=== PATIENT | male | born 1985 | race Caucasian/White ===

== ENCOUNTER 2019-12-05 10:59 | Outpatient (CLI) | payer OTHER, SELFPAY ==
[2019-12-05 11:39] LABS: Potassium 4.2 mmol/L (3.4-5.0)
[2019-12-05 11:45] LABS: Alanine Aminotransferase 20 U/L (4-50); Albumin Level 4.5 g/dL (3.5-5.1); Alkaline Phosphatase 81 U/L (38-126); Aspartate Amino Transferase 24 U/L (17-59); Bilirubin,Total 0.4 mg/dL (0.2-1.3); Blood Urea Nitrogen 15 mg/dL (9-20); Calcium 9.1 mg/dL (8.4-10.2); Carbon Dioxide 27 mmol/L (22-30); Chloride 100 mmol/L (98-107); Cholesterol 174 mg/dL (0-200); Estimated Glomerular Filt Rate > 60; Glucose 86 mg/dL (75-110); HDL Direct 42 mg/dL; Sodium 139 mmol/L (137-145); Triglycerides 160 mg/dL (<150); Uric Acid 4.9 mg/dL (3.5-8.5)
[2019-12-05 11:51] LABS: LDL Cholesterol Direct 96 mg/dL
== END 2019-12-05 11:00 | disposition home or self-care (01) ==
PROVIDERS: PCP Internal Medicine; Visit Provider Internal Medicine
DX: I10 Essential (primary) hypertension (principal)
CPT/HCPCS: 36415; 80053; 80061; 84550

== ENCOUNTER 2020-02-07 08:18 | Outpatient (CLI) | payer OTHER, SELFPAY ==
[2020-02-07 09:01] LABS: Potassium 4.1 mmol/L (3.4-5.0)
[2020-02-07 09:03] LABS: Alanine Aminotransferase 16 U/L (4-50); Albumin Level 4.3 g/dL (3.5-5.1); Alkaline Phosphatase 77 U/L (38-126); Aspartate Amino Transferase 21 U/L (17-59); Bilirubin,Total 0.3 mg/dL (0.2-1.3); Blood Urea Nitrogen 15 mg/dL (9-20); Calcium 9.3 mg/dL (8.4-10.2); Carbon Dioxide 29 mmol/L (22-30); Chloride 102 mmol/L (98-107); Estimated Glomerular Filt Rate > 60; Glucose 89 mg/dL (75-110); Sodium 139 mmol/L (137-145); Uric Acid 5.1 mg/dL (3.5-8.5)
== END 2020-02-07 08:19 | disposition home or self-care (01) ==
PROVIDERS: PCP Internal Medicine; Visit Provider Podiatrist Foot & Ankle Surgery
DX: M10.9 Gout, unspecified (principal)
CPT/HCPCS: 36415; 80053; 84550

== ENCOUNTER 2020-04-22 12:41 | Outpatient (CLI) | payer OTHER, SELFPAY ==
[2020-04-22 13:17] LABS: Alanine Aminotransferase 19 U/L (4-50); Albumin Level 4.3 g/dL (3.5-5.1); Alkaline Phosphatase 84 U/L (38-126); Aspartate Amino Transferase 25 U/L (17-59); Bilirubin,Total 0.5 mg/dL (0.2-1.3); Blood Urea Nitrogen 12 mg/dL (9-20); Calcium 9.2 mg/dL (8.4-10.2); Carbon Dioxide 28 mmol/L (22-30); Chloride 101 mmol/L (98-107); Estimated Glomerular Filt Rate > 60; Glucose 99 mg/dL (75-110); Potassium 3.8 mmol/L (3.4-5.0); Sodium 137 mmol/L (137-145)
== END 2020-04-22 12:42 | disposition home or self-care (01) ==
PROVIDERS: PCP Internal Medicine; Visit Provider Podiatrist Foot & Ankle Surgery
DX: M10.9 Gout, unspecified (principal)
CPT/HCPCS: 36415; 80053; 84550

== ENCOUNTER 2020-09-02 15:17 | Outpatient (CLI) | payer OTHER, SELFPAY ==
[2020-09-02 17:03] LABS: Alanine Aminotransferase 17 U/L (4-50); Albumin Level 4.5 g/dL (3.5-5.1); Alkaline Phosphatase 68 U/L (38-126); Anion Gap 8 mmol/L (8-16); Aspartate Amino Transferase 22 U/L (17-59); Bilirubin,Total 0.6 mg/dL (0.2-1.3); Blood Urea Nitrogen 14 mg/dL (9-20); Calcium 9.6 mg/dL (8.4-10.2); Carbon Dioxide 28 mmol/L (22-30); Chloride 101 mmol/L (98-107); Cholesterol 199 mg/dL (0-200); Estimated Glomerular Filt Rate > 60; Glucose 101 mg/dL (75-110); HDL Direct 46 mg/dL; Sodium 137 mmol/L (137-145); Triglycerides 165 mg/dL (<150)
[2020-09-02 17:14] LABS: LDL Cholesterol Direct 117 mg/dL
== END 2020-09-02 15:18 | disposition home or self-care (01) ==
LOC: ANHLAB 15:19
PROVIDERS: PCP Internal Medicine; Visit Provider Internal Medicine
DX: I10 Essential (primary) hypertension (principal)
CPT/HCPCS: 36415; 80053; 80061

== ENCOUNTER 2020-11-04 10:39 | Outpatient (CLI) | payer OTHER, SELFPAY ==
--- NOTE | ~2020-11-04 | US_ITS ---
EXAMINATION: US scrotum doppler EXAM DATE: 11/04/2020 11:15 INDICATION: Orchitis, epididymitis. TECHNIQUE: Multiple grayscale and Doppler images of the testicles and scrotum were obtained bilateral ly. There is no prior study for comparison. FINDINGS: Right testicle measures 4.8 x 3.4 x 2.5 cm and is morphologically normal. Low resistance Doppler kailey w confirmed. The epididymis is unremarkable. There is no hydrocele or varicocele. Left testicle measures 4.9 x 3.2 x 2.8 cm and is morphologically normal. Low resistance Doppler flow confirmed. The epididymis is unremarkable. There is no hydrocele or varicocele. IMPRESSION: 1. Unremarkable testicular/scrotal ultrasound exam. Reviewed, dictated and finalized at location B. INE OPERATOR TRANSPLANTER
== END 2020-11-04 10:40 | disposition home or self-care (01) ==
PROVIDERS: PCP Internal Medicine; Visit Provider Urology
DX: N45.3 Epididymo-orchitis (principal)
CPT/HCPCS: 76870; 93976

== ENCOUNTER 2021-02-17 12:53 | Outpatient (CLI) | payer OTHER, SELFPAY ==
[2021-02-17 13:42] LABS: Alanine Aminotransferase 16 U/L (4-50); Albumin Level 4.7 g/dL (3.5-5.1); Alkaline Phosphatase 86 U/L (38-126); Anion Gap 7 mmol/L (8-16); Aspartate Amino Transferase 25 U/L (17-59); Bilirubin,Total 0.6 mg/dL (0.2-1.3); Blood Urea Nitrogen 13 mg/dL (9-20); Calcium 9.6 mg/dL (8.4-10.2); Carbon Dioxide 26 mmol/L (22-30); Chloride 103 mmol/L (98-107); Estimated Glomerular Filt Rate > 60; Glucose 105 mg/dL (75-110); Potassium 4.2 mmol/L (3.4-5.0); Sodium 136 mmol/L (137-145)
== END 2021-02-17 12:54 | disposition home or self-care (01) ==
LOC: ANHLAB 12:56
PROVIDERS: PCP Internal Medicine; Visit Provider Podiatrist Foot & Ankle Surgery
DX: M10.9 Gout, unspecified (principal)
CPT/HCPCS: 36415; 80053; 84550

== ENCOUNTER 2021-08-20 13:58 | Emergency (ER) | payer OTHER, SELFPAY ==
--- NOTE | ~2021-08-20 | US_ITS ---
EXAMINATION: US right upper quadrant DATE: 08/20/2021 15:34 INDICATION: Epigastric pain TECHNIQUE: Multiple grayscale and Doppler ultrasound images of the abdomen were obtained. COMPARISON: None FINDINGS: The pancreatic head and body are normal in appearance. The pancreatic tail is not visualized. Liver has normal echogenicity and contour, with a smooth surface. No liver lesion identified. No intrahepat ic biliary duct dilation suspected. Portal venous flow was seen in the hepatopetal, normal direction and has normal Doppler waveform. The gallbladder is normal in appearance. There is no cholelithiasis . The common bile duct measures 2 mm, which is normal. Sonographic Garcia sign was reported as negati ve by the auto apprentice mechanic. Visualized portion of the right kidney demonstrates normal echogenicity and co ntour with no hydronephrosis. IMPRESSION: 1. Normal right upper quadrant ultrasound. Reviewed, dictated and finalized at location A. RITY SOLUTIONS ENGINEER
--- NOTE | ~2021-08-20 | XR_ITS ---
XR chest 2V DATE: 08/20/2021 14:31 INDICATION: Sharp left-sided chest pain TECHNIQUE: PA and lateral views COMPARISON: 04/26/2019 PA chest FINDINGS: Normal heart size. No hilar or mediastinal enlargement. There is mild elevation of the right leaf of the diaphragm anteriorly, likely due to mild eventration . No pulmonary infiltrate or consolidation, pleural effusion or pulmonary vascular congestion or pneumo thorax is detected. Included skeletal structures are unremarkable. IMPRESSION: No active cardiopulmonary disease Reviewed, dictated and finalized at location A. GENETIC TECHNICIAN
--- NOTE | 2021-08-20 13:59 | ECG_ITS ---
Measurements Intervals [place] Rate: 66 P: 43 WI: 162 QRS: 2 QRSD: 106 T: 12 QT: 348 QTc: 365 Interpretive Statements SINUS RHYTHM NORMAL ECG Electronically Signed On 08-20-2021 14:18:23 HANDLE TURNER by Jacob Hairston D.O.
[2021-08-20 14:08] VITALS: BP 158/99; PULSE 69; RESP 16; TEMP 36.7; O2SAT 100
[2021-08-20 14:11] LABS: Basophils Percent Auto 0.4 % (0.2-1.2); Eosinophils Absolute Auto 0.2 K/mm3 (0-0.3); Eosinophils Percent Auto 2.8 % (0-4.4); Hematocrit 43.5 % (42.0-52.0); Hemoglobin 14.5 g/dL (14.0-18.0); Immature Granulocyte Absolute 0.02 K/mm3 (0.00-0.031); Immature Granulocyte Percent A 0.3 % (0-0.5); Lymphocytes Absolute Auto 2.23 K/mm3 (0.9-3.2); Lymphocytes Percent Auto 29.5 % (18.3-44.2); Mean Corpuscular HGB Conc 33.3 g/dl (32-36); Mean Corpuscular Hemoglobin 27.2 pg (26-34); Mean Corpuscular Volume 81.6 fl (80-100); Mean Platelet Volume 9.7 fl (7.4-10.4); Monocytes Absolute Auto 0.7 K/mm3 (0.1-0.6); Monocytes Percent Auto 9.1 % (2.6-8.5); Neutrophils Absolute Auto 4.4 K/mm3 (1.3-6.7); Neutrophils Percent Auto 57.9 % (45.5-73.1); Platelet Count Result 270 k/mm3 (150-375); Red Blood Count 5.33 M/mm3 (4.6-6.20); Red Cell Distribution Width 13.3 % (11.5-14.5); White Blood Count 7.6 K/mm3 (4.5-10.0)
[2021-08-20 14:21] LABS: Prothrombin Time 12.9 Seconds (11.1-14.7)
[2021-08-20 14:22] LABS: Partial Thromboplastin Time 27.2 SECONDS (22.3-36.8)
[2021-08-20 14:23] LABS: Alanine Aminotransferase 19 U/L (4-50); Albumin Level 4.5 g/dL (3.5-5.1); Alkaline Phosphatase 74 U/L (38-126); Anion Gap 9 mmol/L (8-16); Aspartate Amino Transferase 24 U/L (17-59); Bilirubin,Total 0.5 mg/dL (0.2-1.3); Blood Urea Nitrogen 12 mg/dL (9-20); Calcium 9.5 mg/dL (8.4-10.2); Carbon Dioxide 27 mmol/L (22-30); Chloride 104 mmol/L (98-107); Estimated CRCL calculation 120 ml/min; Estimated Glomerular Filt Rate > 60; Glucose 104 mg/dL (65-110); Lipase 77 U/L (23-300); Sodium 140 mmol/L (137-145)
[2021-08-20 14:24] VITALS: BP 144/101; PULSE 68; RESP 16; O2SAT 99
[2021-08-20 14:32] VITALS: BP 155/92; PULSE 73; RESP 12; O2SAT 99
[2021-08-20 14:35] LABS: Troponin I < 0.012 ng/mL (0.000-0.034)
[2021-08-20] MEDS: ASPIRIN 81 MG CHEWABLE TABLET 324 MG PO (14:41)
[2021-08-20 15:01] VITALS: BP 164/92; PULSE 79; RESP 13; O2SAT 100
[2021-08-20 15:48] VITALS: BP 141/93; PULSE 75; RESP 20; O2SAT 98
--- NOTE | 2021-08-20 16:32 | ED.CHESTPAIN ---
HPI - Chest Pain General Chief Complaint: Chest Pain Stated Complaint: chest pain Time Seen by Provider: 08/20/21 14:04 History of Present Illness HPI narrative: Patient is a 36-year-old male who presents ER with chest pain. Symptoms began last week. Has had intermittent chest pain in the center of his chest. Last for minutes at a time. No radiation. No runny nose or sore throat or productive cough. No exertional component. Has also been having some numbness in his left arm at times when he wakes up. He does note that he has been sleeping with his son and has not been getting as much rest recently. He has been feeling more worn down. After talking to family/friends he is opted to seek care given his symptoms. Reports she is had similar symptoms in the past and his gallbladder was evaluated without diagnosis of gallstones. He reports he has a grandmother with history of coronary disease at a young age however his mother and father have no coronary disease. Patient also reports she is recently started working out and has been using a rowing machine. Related Data Home Medications Medication Instructions Recorded Confirmed allopurinol 08/20/21 lisinopril 08/20/21 Allergies Allergy/AdvReac Type Severity Reaction Status Date / Time No Known Allergies Allergy Verified 08/20/21 14:33 Review of Systems Review of Systems: All systems reviewed & are unremarkable except as noted in HPI and below Constitutional: Constitutional: Denies chills, Reports fatigue, Denies fever(s) and Denies weakness ENT: Denies nasal congestion and Denies sore throat Cardiovascular: Cardiovascular: Reports chest pain, Denies rapid heart rate and Denies radiating jaw, neck or arm pain Respiratory: Respiratory: Denies cough, Denies dyspnea and Denies wheezing Gastrointestinal: Gastrointestinal: Denies abdominal pain, Denies diarrhea and Denies vomiting Musculoskeletal: Musculoskeletal: Denies back pain and Denies muscle cramps PMFSH Past Medical History Medical History (Updated 08/20/21 @ 16:47 by Matthias Hussein MD) Hypertension Surgical History Surgical History (Updated 08/20/21 @ 16:47 by Matthias Hussein MD) H/O hernia repair Hx of appendectomy Social History Social History (Updated 08/20/21 @ 16:47 by Matthias Hussein MD) Smoking status: Never smoker Exam Narrative: GENERAL: Well-appearing, well-nourished, and in no acute distress. HEAD: Normocephalic, atraumatic. ENT: Mucous membranes moist. CHEST: Clear to auscultation. No respiratory distress. HEART: Regular rate and rhythm. Normal peripheral pulses. ABDOMEN: Soft, nontender, nondistended. EXTREMITIES: Normal range of motion. No edema. SKIN: Warm, dry, no rash. NEURO: Alert and oriented x3. PSYCH: Normal mood and affect. Course Course Emergency Course: Informed of results. Feels well. Discharge home. Vital Signs Vital signs: Vital Signs Temperature 98.1 F 08/20/21 14:08 Pulse Rate 69 08/20/21 14:08 Respiratory Rate 16 08/20/21 14:08 Blood Pressure 158/99 H 08/20/21 14:08 Pulse Oximetry 100 08/20/21 14:08 Temperature 98.1 F 08/20/21 14:08 Pulse Rate 75 08/20/21 15:48 Respiratory Rate 20 08/20/21 15:48 Blood Pressure 141/93 H 08/20/21 15:48 Pulse Oximetry 98 08/20/21 15:48 MDM - Chest Pain Lab Data Result diagrams: 08/20/21 14:05 08/20/21 14:05 Labs: Lab Results 08/20/21 08/20/21 08/20/21 Range/Units 14:05 14:05 14:05 WBC 7.6 (4.5-10.0) K/mm3 RBC 5.33 (4.6-6.20) M/mm3 Hgb 14.5 (14.0-18.0) g/dL Hct 43.5 (42.0-52.0) % MCV 81.6 (80-100) fl MCH 27.2 (26-34) pg MCHC 33.3 (32-36) g/dl RDW 13.3 (11.5-14.5) % Plt Count 270 (150-375) k/mm3 MPV 9.7 (7.4-10.4) fl Immature Gran % (Auto) 0.3 (0-0.5) % Neut % (Auto) 57.9 (45.5-73.1) % Lymph % (Auto) 29.5 (18.3-44.2) % [place] % (Auto) 9.1 H (2.6-8.5) %
== END 2021-08-20 16:57 | disposition home or self-care (01) ==
PROVIDERS: Emergency Provider Emergency Medicine; PCP Internal Medicine
DX: R07.89 Other chest pain (principal); I10 Essential (primary) hypertension
CPT/HCPCS: 36415; 71046; 76705; 80053; 83690; 84484; 85025; 85610; 85730; 93005; 99284; A9270

== ENCOUNTER 2022-01-27 13:14 | Outpatient (CLI) | payer OTHER, SELFPAY ==
--- NOTE | ~2022-01-27 | XR_ITS ---
EXAMINATION:XR_CERV2-3V_CR DATE: 01/27/2022 13:38 INDICATION: Neck pain TECHNIQUE: AP, lateral, lateral swimmers and odontoid views of the cervical spine are provided. COMPARISON: None FINDINGS: Alignment is normal. The odontoid is intact. No fracture is identified. Vertebral body heig hts and disk spaces are normal. Prevertebral soft tissues are normal. IMPRESSION: 1. No acute osseous abnormality. Reviewed, dictated and finalized at location F.
[2022-01-27 14:48] LABS: Alanine Aminotransferase 20 U/L (4-50); Albumin Level 4.7 g/dL (3.5-5.1); Alkaline Phosphatase 85 U/L (38-126); Anion Gap 9 mmol/L (8-16); Aspartate Amino Transferase 27 U/L (17-59); Bilirubin,Total 0.4 mg/dL (0.2-1.3); Blood Urea Nitrogen 14 mg/dL (9-20); Calcium 9.2 mg/dL (8.4-10.2); Carbon Dioxide 23 mmol/L (22-30); Chloride 105 mmol/L (98-107); Cholesterol 206 mg/dL (0-200); Estimated Glomerular Filt Rate > 60; Glucose 105 mg/dL (65-110); HDL Direct 42 mg/dL; Potassium 3.9 mmol/L (3.4-5.0); Sodium 137 mmol/L (137-145); Triglycerides 229 mg/dL (<150); Uric Acid 5.4 mg/dL (3.5-8.5)
[2022-01-27 14:59] LABS: LDL Cholesterol Direct 108 mg/dL
== END 2022-01-27 13:15 | disposition home or self-care (01) ==
PROVIDERS: PCP Internal Medicine; Visit Provider Internal Medicine
DX: I10 Essential (primary) hypertension (principal); M54.2 Cervicalgia
CPT/HCPCS: 36415; 72040; 80053; 80061; 84550

== ENCOUNTER 2022-07-24 09:39 | Outpatient (CLI) | payer OTHER, SELFPAY ==
[2022-07-24 10:23] LABS: Alanine Aminotransferase 20 U/L (6-50); Albumin Level 4.6 g/dL (3.5-5.1); Alkaline Phosphatase 83 U/L (38-126); Anion Gap 15 mmol/L (8-16); Aspartate Amino Transferase 23 U/L (17-59); Bilirubin,Total 0.5 mg/dL (0.2-1.3); Blood Urea Nitrogen 11 mg/dL (9-20); Calcium 9.2 mg/dL (8.4-10.2); Carbon Dioxide 24 mmol/L (22-30); Chloride 102 mmol/L (98-107); Cholesterol 159 mg/dL (0-200); Estimated Glomerular Filt Rate > 60; Glucose 90 mg/dL (65-110); HDL Direct 39 mg/dL; Potassium 4.1 mmol/L (3.4-5.0); Sodium 141 mmol/L (137-145); Triglycerides 145 mg/dL (<150); Uric Acid 4.7 mg/dL (3.5-8.5)
[2022-07-24 10:34] LABS: LDL Cholesterol Direct 87 mg/dL
== END 2022-07-24 09:40 | disposition home or self-care (01) ==
PROVIDERS: PCP Internal Medicine; Visit Provider Internal Medicine
DX: M10.9 Gout, unspecified (principal); I10 Essential (primary) hypertension
CPT/HCPCS: 36415; 80053; 80061; 84550

== ENCOUNTER 2022-08-04 12:17 | Outpatient (CLI) | payer OTHER, SELFPAY ==
--- NOTE | ~2022-08-04 | XR_ITS ---
XR shoulder RT min 2V DATE: 08/04/2022 12:52 INDICATION: Right shoulder pain. No known injury. TECHNIQUE: 5 views COMPARISON: None FINDINGS: No fracture or dislocation, periosteal reaction or bone destruction or abnormal soft tissue calcification. IMPRESSION: Negative Reviewed, dictated and finalized at location A. IMPRESSION: Negative
== END 2022-08-04 12:18 | disposition home or self-care (01) ==
PROVIDERS: PCP Internal Medicine; Visit Provider Orthopaedic Surgery
DX: M25.511 Pain in right shoulder (principal)
CPT/HCPCS: 73030

== ENCOUNTER 2023-01-25 00:38 | Emergency (ER) | payer OTHER, SELFPAY ==
[2023-01-25] VITALS (8 sets, daily range): BP systolic 129–143; BP diastolic 88–100; PULSE 60–79; RESP 11–16; TEMP 36.3; O2SAT 97–100
[2023-01-25 01:11] LABS: Basophils Percent Auto 0.2 % (0.2-1.2); Eosinophils Absolute Auto 0.2 K/mm3 (0-0.3); Eosinophils Percent Auto 2.7 % (0-4.4); Hematocrit 48.2 % (42.0-52.0); Hemoglobin 15.9 g/dL (14.0-18.0); Immature Granulocyte Absolute 0.01 K/mm3 (0.00-0.031); Immature Granulocyte Percent A 0.2 % (0-0.5); Lymphocytes Absolute Auto 1.65 K/mm3 (0.9-3.2); Lymphocytes Percent Auto 25.8 % (18.3-44.2); Mean Corpuscular Hemoglobin 27.3 pg (26-34); Mean Corpuscular Volume 82.8 fl (80-100); Mean Platelet Volume 9.8 fl (7.4-10.4); Monocytes Percent Auto 14.9 % (2.6-8.5); Neutrophils Absolute Auto 3.6 K/mm3 (1.3-6.7); Neutrophils Percent Auto 56.2 % (45.5-73.1); Platelet Count Result 267 k/mm3 (150-375); Red Blood Count 5.82 M/mm3 (4.6-6.20); Red Cell Distribution Width 13.1 % (11.5-14.5); White Blood Count 6.4 K/mm3 (4.5-10.0)
[2023-01-25 01:28] LABS: Alanine Aminotransferase 21 U/L (6-50); Albumin Level 4.6 g/dL (3.5-5.1); Alkaline Phosphatase 70 U/L (38-126); Anion Gap 8 mmol/L (8-16); Aspartate Amino Transferase 26 U/L (17-59); Bilirubin,Total 0.9 mg/dL (0.2-1.3); Blood Urea Nitrogen 16 mg/dL (9-20); Calcium 9.4 mg/dL (8.4-10.2); Carbon Dioxide 29 mmol/L (22-30); Chloride 99 mmol/L (98-107); Estimated CRCL calculation 111 ml/min; Estimated Glomerular Filt Rate > 60; Glucose 91 mg/dL (65-110); Lipase 114 U/L (23-300); Potassium 4.1 mmol/L (3.4-5.0); Sodium 136 mmol/L (137-145)
[2023-01-25] MEDS: FAMOTIDINE 20 MG/2 ML VIAL IV PUSH (01:42)
[2023-01-25] MEDS: HYDROmorphone HCL INJ (*CRX) 1 MG/ML SYR 0.5 MG IV PUSH (01:42)
[2023-01-25] MEDS: SODIUM CHLORIDE 0.9% IV 2,000 ML 999 ML IV CONT (01:42)
[2023-01-25] MEDS: ONDANSETRON INJ 4 MG/2 ML VIAL IV PUSH (01:42)
--- NOTE | 2023-01-25 02:17 | ED.GENADULT ---
HPI - General Adult General Chief complaint: Abdominal Pain Stated complaint: abdominal pain Time Seen by Provider: 01/25/23 00:59 History of Present Illness HPI narrative: This is a 37-year-old male presenting ED with chief complaint of nausea vomiting abdominal pain. Patient has been on would go be for the last month. He increased his dose from 20 mg to 50 mg. Afterwards he started experience sharp generalized abdominal pain, it is nonradiating, 8 out 10 intensity and constant. He has tried Zofran which has helped his symptoms and there are no exacerbating factors. It is associated with decreased oral intake and nausea. No vomiting, diarrhea fever or chills. Patient is concerned that he has pancreatitis. Related Data Home Medications Medication Instructions Recorded Confirmed allopurinol 100 mg tablet 08/20/21 lisinopril 5 mg tablet 08/20/21 Allergies Allergy/AdvReac Type Severity Reaction Status Date / Time No Known Allergies Allergy Verified 01/25/23 00:38 PMFSH Past Medical History Medical History Hypertension Surgical History Surgical History H/O hernia repair Hx of appendectomy Social History Social History Smoking status: Never smoker Exam Narrative: APPEARANCE: No apparent distress. Head: atraumatic. EYES: EOMI, NOSE: Atraumatic NECK: Trachea midline RESPIRATORY: No increased rate of breathing CTAB CARDIOVASCULAR: RRR, ABDOMINAL: Abdomen is soft, nontender with no guarding or rebound MUSCULOSKELETAl: No obvious deformities NEURO: Alert. Moving 4/4 extremities SKIN:: Warm, dry. Normal color PSYCHIATRIC: Normal affect Course Vital Signs Vital signs: Vital Signs Temperature 97.3 F L 01/25/23 00:40 Pulse Rate 79 01/25/23 00:40 Respiratory Rate 14 01/25/23 00:40 Blood Pressure 143/98 H 01/25/23 00:40 Pulse Oximetry 99 01/25/23 00:40 Oxygen Delivery Room Air 01/25/23 00:40 Temperature 97.3 F L 01/25/23 00:40 Pulse Rate 76 01/25/23 01:43 Respiratory Rate 16 01/25/23 01:43 Blood Pressure 130/100 H 01/25/23 01:43 Pulse Oximetry 97 01/25/23 01:43 Oxygen Delivery Room Air 01/25/23 00:40 Medical Decision Making [facility] Narrative Medical decision making narrative: -Presentation: 37-year-old male presenting ED with chief complaint of abdominal pain with nausea and vomiting after increasing his Wegovy dose. 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 Dx tests considered but not ordered: -Procedures: -Interventions: 2 L normal saline, Zofran, Dilaudid, Pepcid -Shared decision making / Disposition: patient's laboratory studies are normal. Abdominal exam is benign. Vital signs are stable. Patient will be discharged with symptomatic treatment. Symptoms are likely due to increased wegovy dosing. -RX Vital Signs Vital Signs: Vital Signs Temperature 97.3 F L 01/25/23 00:40 Pulse Rate 79 01/25/23 00:40 Respiratory Rate 14 01/25/23 00:40 Blood Pressure 143/98 H 01/25/23 00:40 Pulse Oximetry 99 01/25/23 00:40 Oxygen Delivery Room Air 01/25/23 00:40 Temperature 97.3 F L 01/25/23 00:40 Pulse Rate 76 01/25/23 01:43 Respiratory Rate 16 01/25/23 01:43 Blood Pressure 130/100 H 01/25/23 01:43 Pulse Oximetry 97 01/25/23 01:43 Oxygen Delivery Room Air 01/25/23 00:40 Lab Data 01/25/23 01:05
== END 2023-01-25 03:25 | disposition home or self-care (01) ==
PROVIDERS: Emergency Provider Emergency Medicine; PCP Internal Medicine
DX: T88.7XXA Unspecified adverse effect of drug or medicament, initial encounter (principal)
CPT/HCPCS: 36415; 80053; 83690; 85025; 96361; 96374; 96375; 99284; J1170; J2405; J7030

== ENCOUNTER 2023-02-08 14:23 | Outpatient (CLI) | payer OTHER, SELFPAY ==
--- NOTE | ~2023-02-08 | XR_ITS ---
EXAM: XR elbow LT 2V DATE: 02/08/2023 14:35 HISTORY: M25.522 - Pain in left elbow, GENERALIZED PAIN, NO INJURY . COMPARISON: None available. FINDINGS: Normal mineralization. No fracture or dislocation. No lytic or blastic lesion. Mild degene rative changes at the left elbow joint. Olecranon enthesopathy. No erosion or periosteal change. Soft tissues within normal limits. 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 Reviewed, dictated and finalized at location K. IMPRESSION: Olecranon enthesopathy and mild degenerative change at the left elb ow joint, otherwise normal left elbow radiograph findings.
== END 2023-02-08 14:24 | disposition home or self-care (01) ==
PROVIDERS: PCP Internal Medicine; Visit Provider Orthopaedic Surgery
DX: M25.522 Pain in left elbow (principal)
CPT/HCPCS: 73070

== ENCOUNTER 2023-07-23 09:49 | Outpatient (CLI) | payer OTHER, SELFPAY ==
[2023-07-23 10:26] LABS: Basophils Percent Auto 0.3 % (0.2-1.2); Eosinophils Absolute Auto 0.5 K/mm3 (0-0.3); Eosinophils Percent Auto 6.2 % (0-4.4); Hematocrit 45.6 % (42.0-52.0); Hemoglobin 14.9 g/dL (14.0-18.0); Immature Granulocyte Absolute 0.01 K/mm3 (0.00-0.031); Immature Granulocyte Percent A 0.1 % (0-0.5); Lymphocytes Absolute Auto 2.19 K/mm3 (0.9-3.2); Lymphocytes Percent Auto 28.9 % (18.3-44.2); Mean Corpuscular HGB Conc 32.7 g/dl (32-36); Mean Corpuscular Hemoglobin 27.5 pg (26-34); Mean Corpuscular Volume 84.1 fl (80-100); Mean Platelet Volume 9.8 fl (7.4-10.4); Monocytes Absolute Auto 0.6 K/mm3 (0.1-0.6); Monocytes Percent Auto 7.6 % (2.6-8.5); Neutrophils Absolute Auto 4.3 K/mm3 (1.3-6.7); Neutrophils Percent Auto 56.9 % (45.5-73.1); Platelet Count Result 260 k/mm3 (150-375); Red Blood Count 5.42 M/mm3 (4.6-6.20); Red Cell Distribution Width 12.8 % (11.5-14.5); White Blood Count 7.6 K/mm3 (4.5-10.0)
[2023-07-23 10:35] LABS: Alanine Aminotransferase 15 U/L (6-50); Albumin Level 4.7 g/dL (3.5-5.1); Alkaline Phosphatase 72 U/L (38-126); Anion Gap 7 mmol/L (8-16); Aspartate Amino Transferase 21 U/L (17-59); Bilirubin,Total 0.6 mg/dL (0.2-1.3); Blood Urea Nitrogen 14 mg/dL (9-20); Calcium 9.5 mg/dL (8.4-10.2); Carbon Dioxide 29 mmol/L (22-30); Chloride 103 mmol/L (98-107); Cholesterol 148 mg/dL (0-200); Estimated Glomerular Filt Rate > 60; Glucose 84 mg/dL (65-110); HDL Direct 41 mg/dL; Potassium 4.1 mmol/L (3.4-5.0); Sodium 139 mmol/L (137-145); Triglycerides 104 mg/dL (<150)
[2023-07-23 10:46] LABS: LDL Cholesterol Direct 77 mg/dL
[2023-07-28 22:04] LABS: CRP, High Sensitivity 2.4 mg/L (***)
== END 2023-07-23 09:50 | disposition home or self-care (01) ==
LOC: ANHLAB 09:51
PROVIDERS: PCP Internal Medicine; Visit Provider Internal Medicine
DX: R07.9 Chest pain, unspecified (principal)
CPT/HCPCS: 36415; 80053; 80061; 85025; 86141

== ENCOUNTER 2023-08-09 09:04 | Outpatient (CLI) | payer OTHER, SELFPAY ==
--- NOTE | 2023-08-09 | EST_ITS ---
Patient Info Name: Kevin Berman Age: 38 years : 1985 Gender: Male Exam Date: 08/09/2023 9:30 AM Exam Location: Echo Lab Patient Status: Outpatient Admit Date: 08/09/2023 Staff Ordering Physician: Terrance, Kobe GARBER Attending Provider: Terrance, Kobe GARBER Exercise Technologist: Mary Johnson RDCS Nurse: Elza Riddle APN Exercise Physician: Nik Coe MD Exam Type: CA stress test treadmill Study Info Indications R07.9 - Chest pain, unspecified A treadmill exercise stress test was performed. Summary 1. No significant ST/T wave changes with exercise meeting strict criteria for reversible myocardial ischemia. 2. No arrhythmias were observed during the examination. 3. Exercise capacity very good at >10 METS. 4. No chest discomfort with stress test. 5. Hypertensive blood pressure response to exercise, albeit hypertensive at baseline. 6. Maximal treadmill ECG stress test achieving 96% of age predicted maximum heart rate and 12.1 METS at peak exercise. Protocol: Wil[place] Stress ECG Details Stage: REST Duration (min): 1 min : 43 sec Speed (mph): 0.0 Grade (%): 0 HR (bpm): 70 SBP (mmHg): 134 DBP (mmHg): 90 METS: --- Stage: REST Duration (min): 14 min : 2 sec Speed (mph): 0.0 Grade (%): 0 HR (bpm): 70 SBP (mmHg): 134 DBP (mmHg): 90 METS: --- Stage: STAGE 1 Duration (min): 1 min : 0 sec Speed (mph): 1.7 Grade (%): 10 HR (bpm): 99 SBP (mmHg): 134 DBP (mmHg): 90 METS: --- Stage: STAGE 1 Duration (min): 2 min : 0 sec Speed (mph): 1.7 Grade (%): 10 HR (bpm): 103 SBP (mmHg): 134 DBP (mmHg): 90 METS: --- Stage: STAGE 1 Duration (min): 3 min : 0 sec Speed (mph): 1.7 Grade (%): 10 HR (bpm): 101 SBP (mmHg): 159 DBP (mmHg): 90 METS: --- Stage: STAGE 2 Duration (min): 1 min : 0 sec Speed (mph): 2.5 Grade (%): 12 HR (bpm): 115 SBP (mmHg): 159 DBP (mmHg): 90 METS: --- Stage: STAGE 2 Duration (min): 2 min : 0 sec Speed (mph): 2.5 Grade (%): 12 HR (bpm): 127 SBP (mmHg): 159 DBP (mmHg): 89 METS: --- Stage: STAGE 2 Duration (min): 3 min : 0 sec Speed (mph): 2.5 Grade (%): 12 HR (bpm): 130 SBP (mmHg): 159 DBP (mmHg): 89 METS: --- Stage: STAGE 3 Duration (min): 1 min : 0 sec Speed (mph): 3.4 Grade (%): 14 HR (bpm): 143 SBP (mmHg): 169 DBP (mmHg): 91 METS: --- Stage: STAGE 3 Duration (min): 2 min : 0 sec Speed (mph): 3.4 Grade (%): 14 HR (bpm): 151 SBP (mmHg): 169 DBP (mmHg): 91 METS: --- Stage: STAGE 3 Duration (min): 3 min : 0 sec Speed (mph): 3.4 Grade (%): 14 HR (bpm): 156 SBP (mmHg): 212 DBP (mmHg): 85 METS: --- Stage: STAGE 4 Duration (min): 1 min : 0 sec Speed (mph): 4.2 Grade (%): 16 HR (bpm): 172 SBP (mmHg): 209 DBP (mmHg): 112 METS: --- Stage: STAGE 4 Duration (min): 1 min : 0 sec Speed (mph): 4.2 Grade (%): 16 HR (bpm): 172 SBP
== END 2023-08-09 09:05 | disposition home or self-care (01) ==
PROVIDERS: PCP Internal Medicine; Visit Provider Internal Medicine
DX: R07.9 Chest pain, unspecified (principal)
CPT/HCPCS: 93017

== ENCOUNTER 2023-10-18 07:51 | Outpatient (CLI) | payer OTHER, SELFPAY ==
[2023-10-18 08:23] LABS: Uric Acid 6.1 mg/dL (3.5-8.5)
== END 2023-10-18 07:52 | disposition home or self-care (01) ==
LOC: ANHLAB 07:54
PROVIDERS: PCP Internal Medicine; Visit Provider Podiatrist Foot & Ankle Surgery
DX: M10.9 Gout, unspecified (principal)
CPT/HCPCS: 36415; 84550

== ENCOUNTER 2024-01-17 12:19 | Outpatient (CLI) | payer OTHER, SELFPAY ==
[2024-01-17 13:02] LABS: Alanine Aminotransferase 19 U/L (6-50); Albumin Level 4.6 g/dL (3.5-5.1); Alkaline Phosphatase 71 U/L (38-126); Anion Gap 7 mmol/L (4-12); Aspartate Amino Transferase 22 U/L (17-59); Bilirubin,Total 0.6 mg/dL (0.2-1.3); Blood Urea Nitrogen 13 mg/dL (9-20); Calcium 9.3 mg/dL (8.4-10.2); Carbon Dioxide 26 mmol/L (22-30); Chloride 105 mmol/L (98-107); Estimated Glomerular Filt Rate > 60; Glucose 86 mg/dL (65-110); Potassium 4.4 mmol/L (3.4-5.0); Sodium 138 mmol/L (137-145); Uric Acid 4.7 mg/dL (3.5-8.5)
== END 2024-01-17 12:20 | disposition home or self-care (01) ==
LOC: ANHLAB 12:21
PROVIDERS: PCP Internal Medicine; Visit Provider Podiatrist Foot & Ankle Surgery
DX: M10.079 Idiopathic gout, unspecified ankle and foot (principal)
CPT/HCPCS: 36415; 80053; 84550

== ENCOUNTER 2024-05-09 15:25 | Outpatient (CLI) | payer OTHER, SELFPAY ==
--- NOTE | ~2024-05-09 | XR_ITS ---
EXAM: XR knee LT min 4V DATE: 05/09/2024 15:45 HISTORY: M25.562 - Pain in left knee, medial pain . COMPARISON: None available. FINDINGS: Normal mineralization. No fracture or dislocation. No lytic or blastic lesion. Mild medial joint space narrowing. Mild patellofemoral and lateral compartment osteophytosis. Quadriceps entheso olga. Trace knee joint effusion. No erosion or periosteal change. Soft tissues within normal limits. IMPRESSION: Mild tricompartmental osteoarthritis of the left knee. Reviewed, dictated and finalized at location K.
== END 2024-05-09 15:26 | disposition home or self-care (01) ==
LOC: ANHIMG 15:25
PROVIDERS: PCP Internal Medicine; Visit Provider Orthopaedic Surgery
DX: M17.12 Unilateral primary osteoarthritis, left knee (principal)
CPT/HCPCS: 73564

== ENCOUNTER 2024-08-21 15:45 | Outpatient (CLI) | payer OTHER, SELFPAY ==
[2024-08-21 16:32] LABS: Basophils Percent Auto 0.6 % (0.2-1.2); Eosinophils Absolute Auto 0.1 K/mm3 (0-0.3); Hematocrit 43.2 % (42.0-52.0); Hemoglobin 14.5 g/dL (14.0-18.0); Immature Granulocyte Absolute 0.03 K/mm3 (0.00-0.031); Immature Granulocyte Percent A 0.4 % (0-0.5); Lymphocytes Absolute Auto 1.92 K/mm3 (0.9-3.2); Lymphocytes Percent Auto 27.4 % (18.3-44.2); Mean Corpuscular HGB Conc 33.6 g/dl (32-36); Mean Corpuscular Hemoglobin 27.6 pg (26-34); Mean Corpuscular Volume 82.3 fl (80-100); Mean Platelet Volume 9.9 fl (7.4-10.4); Monocytes Absolute Auto 0.7 K/mm3 (0.1-0.6); Monocytes Percent Auto 10.4 % (2.6-8.5); Neutrophils Absolute Auto 4.1 K/mm3 (1.3-6.7); Neutrophils Percent Auto 59.2 % (45.5-73.1); Platelet Count Result 277 k/mm3 (150-375); Red Blood Count 5.25 M/mm3 (4.6-6.20); Red Cell Distribution Width 12.8 % (11.5-14.5)
[2024-08-21 16:54] LABS: Alanine Aminotransferase 16 U/L (6-50); Albumin Level 4.4 g/dL (3.5-5.1); Alkaline Phosphatase 70 U/L (38-126); Anion Gap 8 mmol/L (4-12); Aspartate Amino Transferase 23 U/L (17-59); Bilirubin,Total 0.4 mg/dL (0.2-1.3); Blood Urea Nitrogen 13 mg/dL (9-20); CRP < 0.5 mg/dL (<1.0); Calcium 9.3 mg/dL (8.4-10.2); Carbon Dioxide 28 mmol/L (22-30); Chloride 102 mmol/L (98-107); Estimated Glomerular Filt Rate > 60; Glucose 87 mg/dL (65-110); Potassium 3.7 mmol/L (3.4-5.0); Sodium 138 mmol/L (137-145)
[2024-08-21 17:13] LABS: Erythrocyte Sedimentation Rate 12 mm/hr (0-20)
== END 2024-08-21 15:46 | disposition home or self-care (01) ==
LOC: ANHLAB 15:48
PROVIDERS: PCP Internal Medicine; Visit Provider Internal Medicine
DX: I10 Essential (primary) hypertension (principal); M10.9 Gout, unspecified
CPT/HCPCS: 36415; 80053; 85025; 85652; 86140

== ENCOUNTER 2024-08-22 14:23 | Outpatient (CLI) | payer OTHER, SELFPAY ==
--- NOTE | ~2024-08-22 | MR_ITS ---
EXAMINATION: MRA brain wo con DATE: 08/22/2024 15:21 INDICATION: Headache. TECHNIQUE: Magnetic resonance angiography (MRA) of the brain was performed without intravenous contra st with T1-weighted SPGR by the 3D [id number] technique. Maximum intensity projection 3D-reconstr uctions were obtained. COMPARISON: None. FINDINGS: The vertebral arteries dominant. There is no significant stenosis of basilar artery or the posterior cerebral arteries. There is no significant stenosis of the intracranial internal carotid arteries or anterior or middle cerebral arteries. The posterior communicating arteries are normal. Anterior commu nicating artery is normal. There is no aneurysm. IMPRESSION: 1. Normal MRA. Reviewed, dictated and finalized at location A. M CLEAN MACHINE OPERATOR IMPRESSION: 1. Normal MRA.
--- NOTE | ~2024-08-22 | MR_ITS ---
EXAMINATION: MR brain/brain stem wo/w con DATE: 08/22/2024 15:19 INDICATION: Headache. TECHNIQUE: Magnetic resonance imaging (MRI) of the brain and brainstem was performed without and with 18 mL MultiHance intravenous contrast. COMPARISON: None. FINDINGS: There are a few punctate foci of increased T2-weighted signal intensity in the cerebral whi te matter, which is normal for the patient's age. There is no intracranial hemorrhage, acute infarcti on, or abnormal intracranial mass lesion. The ventricles are normal in size. The orbits are normal. T here is mild mucosal thickening in the paranasal sinuses. The mastoid air cells are normal. IMPRESSION: 1. Normal brain. Reviewed, dictated and finalized at location A. MENTAL IRONWORKER IMPRESSION: 1. Normal brain.
== END 2024-08-22 14:24 | disposition home or self-care (01) ==
LOC: MICIMG 14:24
PROVIDERS: PCP Internal Medicine; Visit Provider Internal Medicine
DX: R51.9 Headache, unspecified (principal)
CPT/HCPCS: 70544; 70553; A9577

== ENCOUNTER 2024-11-30 07:18 | Outpatient (CLI) | payer OTHER, SELFPAY ==
[2024-11-30 08:49] LABS: Alanine Aminotransferase 17 U/L (6-50); Albumin Level 4.2 g/dL (3.5-5.1); Alkaline Phosphatase 81 U/L (38-126); Anion Gap 10 mmol/L (4-12); Aspartate Amino Transferase 23 U/L (17-59); Bilirubin,Total 0.8 mg/dL (0.2-1.3); Blood Urea Nitrogen 14 mg/dL (9-20); Calcium 9.5 mg/dL (8.4-10.2); Carbon Dioxide 26 mmol/L (22-30); Chloride 103 mmol/L (98-107); Estimated Glomerular Filt Rate > 60; Glucose 93 mg/dL (65-110); Potassium 4.4 mmol/L (3.4-5.0); Sodium 139 mmol/L (137-145); Uric Acid 5.1 mg/dL (3.5-8.5)
== END 2024-11-30 07:19 | disposition home or self-care (01) ==
PROVIDERS: PCP Internal Medicine; Visit Provider Podiatrist Foot & Ankle Surgery
DX: M10.9 Gout, unspecified (principal)
CPT/HCPCS: 36415; 80053; 84550

== ENCOUNTER 2025-08-16 07:45 | Outpatient (CLI) | payer OTHER, SELFPAY ==
--- OUTSIDE RECORDS SUMMARY | 2025-08-16 07:48 | XMS_ITS | Data Portability ---
Author Organization [place] [facility], Main Office Address [address] [place] [address] Assessment Encounter Date Assessment Date Assessment LastModified by Organization Details LastModified Time 07/22/2023 07/22/2023 EKG shows a normal sinus rhythm we will get an exercise stress test coronary calcium score HS CRP CBC CMP lipid. Protonix 40 mg daily for GERD see me back in 6 weeks gout continue current therapy Hypertension controlled Not available 07/22/2023 21:13:23 09/02/2023 09/02/2023 Follow-up 6 months continue current therapy [email or web address] Not available 09/03/2023 20:59:24 Plan of Treatment Reminders Order Date Submit Date Provider Last Modified By Organization Details Last Modified Time Details Appointments None recorded. Lab CRP, high sensitivit y, serum or plasma 2022 023 [facility] (Lab), [address] [place] [address], [phone], 10:19:33 CBC w/ auto diff 2022 023 [facility] (Lab), [address] [place] [address], [phone], 13:09:47 CMP, serum or plasma 2022 023 [facility] (Lab), [address] [place] [address], [phone], 13:09:22 lipid panel, serum 2022 023 [facility] (Lab), [address], [place], [address], 3 13:09:47 Referral None recorded. Procedures None recorded. Surgeries None recorded. Imaging exercise stress test - no auth required 2022 023 [facility] (Cardiology & Emg), [address], [place], [address], 3 14:52:56 CT, coronary calcium score 2022 023 [email or web address] [facility], [address], [place], [address], 4 12:25:25 Medication Orders Protonix 40 mg tablet,del ayed release 2022 023 [facility][id number], [address] , [place], [place], [id number], 3 16:42:41 Patient TargetsNo targets recorded. Patient InstructionsNo instructions recorded. Reason for Referral None Reported. Results Created Date Observation Date Name Description Value Unit Range Abnormal Flag Note LastModifiedBy Organization Detail LastModifiedTime 08/20/20 21 08/20/2021 XR, chest , 2 view No observ ation record ed. [id number] [place] [address] (Imaging) [address] [place] [address], [phone], 12/02/2022 15:42:17 08/20/20 21 08/20/2021 US, abdom en, limit ed No observ ation record ed. [id number] [place] [address] (Imaging) [address] [place] [address], [address], 12/02/2022 15:42:17 01/28/20 22 01/27/2022 XR, cervi gavino spine , 2 or 3 view No observ ation record ed. [id number] [place] [address] [address], [place], [address], 12/02/2022 15:42:17 08/04/20 22 08/04/2022 XR, shoul mike No observ ation record ed. [id number], [place], [address], 12/02/2022 15:42:17 02/09/20 23 02/08/2023 XR, elbow No observ ation record ed. [email or web address] [address], [place], [address], 07/23/2023 09:22:12 07/22/20 23 07/22/2023 elect emery otiedwin am No observ ation record ed. BARCODE Not Available 2022 16:30:20 08/09/20 23 08/09/2023 exerc ise stres s test No observ ation record ed. [email or web address] [address] [facility], [place], [address], 09/22/2023 15:34:10 09/13/20 23 08/09/2023 exerc ise stres s test No observ ation record ed. [email or web address] [address], [place], [address], 10/09/2023 10:57:20 08/23/20 24 08/22/2024 MAMMO , scree jonnathan, digit al, bilat eral No observ ation record ed. [email or web address] [address], [place], [address], 11/03/2024 10:39:07 Result Notes None recorded. Problems Name Problem SNOMED Code Status Onset Date Resolution Date Notes Provider Name and Address Organization Details Recorded Time Blood pressure above reference range 43585766 Active Not Available [facility] 3 01:56:53 Shoulder joint pain 577022089 Active Not Available [facility] 3 01:56:53 Chest pain 62279287 Active Not Available [facility] 3 01:56:53 Right upper quadrant pain 755664056 Active Not Available [facility] 3 01:56:53 Hypertensi ve disorder 09791351 Active Not Available [facility] 3 01:56:53 Pharyngiti s 128004839 Active Not Available [facility] 3 01:56:53 Acquired right hallux rigidus 5759095066876 00 Active Not Available [facility] 3 01:56:53 Foot pain 62043760 Active Not Available [facility] 3 01:56:53 Fatigue 21650926 Active Not Available [facility] 3 01:56:54 Gout 61424240 Active 2019 Not Available [facility] 3 01:56:54 Neck pain 25028558 Active 2021 Not Available [facility] 3 01:56:53 Gastroesop hageal reflux disease 317866938 Active 2022 THA Fu, [place] [facility] 3 16:37:03 Problem Notes None recorded. Procedures Surgical History Date Name Laterality Status Provider Name and Address Organization Details Recorded Time 04/29/20 14 laparoscopic appendectomy completed Not Available [facility] 12/02/2022 15:40:12 06/15/20 13 Insertion drug dlvr implant completed Not Available [facility] 12/02/2022 15:40:12 06/15/20 13 Lawanda arthrs srg decompression completed Not Available [facility] 12/02/2022 15:40:12 06/15/20 13 Lawanda arthrs srg lmtd dbrdmt completed Not Available [facility] 12/02/2022 15:40:12 Hernia Repair completed Not Available [facility] 12/02/2022 15:40:12 appendectomy completed Not Available [facility] 12/02/2022 15:40:12 Imaging Results None recorded. Procedure Notes None recorded. Medical Equipment None Reported. Allergies No known drug allergies Medications Name Sig Start Date Stop Date Status Note LastModified by Organization Details LastModified Time amoxicillin 500 mg capsule 01/29 completed Not Available Not Available Not Available prednisone 10 mg tablet 09/05 completed Not Available Not Available Not Available Protonix 40 mg tablet,yuko yed release Take 1 tablet(s) every day by oral route. active Not Available Not Available No t Available azithromyci n 250 mg tablet TK 2 TS PO ON DAY 1, THEN TK 1 T PO D FOR 4 DAYS 07/22 completed Not Available Not Available Not Available ibuprofen 800 mg tablet TAKE 1 TABLET BY MOUTH THREE TIMES DAILY FOR 7 DAYS NEEDED FOR PAIN 07/22 completed Not Available Not Available Not Available famotidine 40 mg tablet TK 1 T PO BID FOR 7 DAYS 09/05 completed Not Available Not Available Not Available prednisone 20 mg tablet Take 2 tablets every day by oral route for 5 days. 09/05 completed Not Available Not Available Not Available allopurinol 100 mg tablet TAKE 1 TABLET BY MOUTH THREE TIMES DAILY active Not Available Not Available No t Available ciprofloxac in 500 mg tablet TK 1 T PO BID TAT 09/05 completed Not Available Not Available Not Available sulfamethox azole 800 mg-trimetho prim 160 mg tablet TAKE 1 TABLET BY MOUTH TWICE DAILY 01/20 completed Not Available Not Available Not Available tramadol 50 mg tablet TK 1 T PO Q 6 H PRN P 11/15 completed Not Available Not Available Not Available acetaminoph en 500 mg tablet TAKE 2 CAPLETS BY MOUTH THREE TIMES DAILY NEEDED FOR PAIN FOR 7 DAYS 07/22 completed Not Available Not Available Not Available amoxicillin 500 mg tablet Take 1 tablet 3 times a day by oral route. active Not Available Not Available No t Available hydrocortis one acetate 25 mg rectal suppository Insert 1 supposito ry twice a day by rectal route for 10 days. 07/17 completed Not Available Not Available Not Available Kenalog 40 mg/mL suspension for injection Take 2 mL by injection route. 09/05 completed Not Available Not Available Not Available Proctozone- HC 2.5 % topical cream perineal applicator APPLY THIN LAYER TO THE AFFECTED AREA TWICE DAILY FOR ACUTE OPIOID THERAPY DAYS active Not Available Not Available No t Available hydrocodone 7.5 mg-acetamin ophen 325 mg tablet TAKE 1 TABLET BY MOUTH EVERY 6 HOURS NEEDED FOR PAIN 07/22 completed Not Available Not Available Not Available cephalexin 500 mg capsule TK 1 C PO TID FOR 7 DAYS 11/15 completed Not Available Not Available Not Available indomethaci n 50 mg capsule TK 1 CAPSULE PO TID PRF FLARE UPS 07/17 completed Not Available Not Available Not Available diclofenac potassium 50 mg tablet 11/22 completed Not Available Not Available Not Available betamethaso ne dipropionat e 0.05 % topical cream LEANDRO AA OF RASH ON ARMS BID 11/15 completed Not Available Not Available Not Available hydroxyzine HCl 25 mg tablet Take 1 tablet 3 times a day by oral route as needed. active Not Available Not Available No t Available allopurinol 300 mg tablet active Not Available Not Available Not Available lisinopril 5 mg tablet TAKE 1 TABLET BY MOUTH DAILY active Not Available Not Available No t Available methylpredn isolone 4 mg tablets in a dose pack uud 05/23 completed Not Available Not Available Not Available colchicine 0.6 mg tablet Take 1 tablet every day by oral route. active Not Available Not Available No t Available ondansetron 4 mg disintegrat ing tablet DISSOLVE 1 TABLET ON THE TONGUE EVERY 8 HOURS NEEDED FOR NAUSEA OR VOMITING 07/22 completed Not Available Not Available Not Available fluticasone propionate 50 mcg/actuati on nasal spray,suspe nsion 08/05 completed Not Available Not Available Not Available betamethaso ne dipropionat e 0.05 % lotion APPLY A THIN BID TO ARMS AND LEGS 09/05 completed Not Available Not Available Not Available metoclopram krishan 10 mg tablet TAKE 1 TABLET BY MOUTH EVERY 6 HOURS NEEDED FOR NAUSEA OR VOMITING 07/22 completed Not Available Not Available Not Available amoxicillin 875 mg-potassiu m clavulanate 125 mg tablet TK 1 T PO BID WITH THE MORNING AND BOSTON MEAL FOR 10 DAYS 03/17 completed Not Available Not Available Not Available Prilosec OTC 20 mg tablet,yuko yed release Take by oral route. 06/03 completed Not Available Not Available Not Available Vitals Date Recorded Body mass index (BMI) Body height Heart rate Body temperature Body weight Systolic And Diastolic Provider Name and Address Organization Details Last Updated DateTime 2 34.7 kg/m2 177.8 cm 78 /min 98 [degF] 219811. 35 g 132/80 mm[Hg] Not Available [facility] 3 15:40:53 Date Recorded Body mass index (BMI) Body height Heart rate Body temperature Body weight Systolic And Diastolic Provider Name and Address Organization Details Last Updated DateTime 1 34.4 kg/m2 177.8 cm 64 /min 97 [degF] 282112. 17 g 130/78 mm[Hg] Not Available [facility] 3 15:40:53 Date Recorded Body mass index (BMI) Body height Heart rate Body temperature Body weight Systolic And Diastolic Provider Name and Address Organization Details Last Updated DateTime 2 35.3 kg/m2 177.8 cm 94 /min 98 [degF] 288883. 72 g 122/80 mm[Hg] Not Available [facility] 3 15:40:53 Date Recorded Body weight Body mass index (BMI) Body height Body temperature Heart rate Systolic And Diastolic Provider Name and Address Organization Details Last Updated DateTime 3 786634. 1 g 32 kg/m2 177.8 cm 98.1 [degF] 67 /min 122/84 mm[Hg] THA Cohen [facility] 3 15:42:27 Date Recorded Body height Body mass index (BMI) Body weight Body temperature Heart rate Systolic And Diastolic Provider Name and Address Organization Details Last Updated DateTime 3 177.8 cm 33.9 kg/m2 537039. 8 g 97.7 [degF] 79 /min 120/82 mm[Hg] THA Cohen [facility] 3 10:59:32 Social History Question Answer Notes LastModified by Organizat ion Details LastModified Time Tobacco Smoking Status Never Smoker THA Fu [employer] [facility] 07/22/2023 15:36:17 Do You Have An Advance Directive? Yes Living Will [id number] Information not available 12/02/2022 Do You Wear A Helmet When Biking? No Information not available 07/22/2023 What Is Your Level Of Caffeine Consumption? Occasional [id number] Information not available 12/02/2022 In The 14 Days Before Symptom Onset, Have You Had Close Contact With A Laboratory-gillian rmed COVID-19 While That Case Was Ill? No Information not available 07/22/2023 In The 14 Days Before Symptom Onset, Have You Had Close Contact With A Person Who Is Under Investigation For COVID-19 While That Person Was Ill? No Information not available 07/22/2023 What Type Of Diet Are You Following? REGULAR [id number] Information not available 12/02/2022 What Is The Highest Grade Or Level Of School You Have Completed Or The Highest Degree You Have Received? [id number] Information not available 07/22/2023 Have There Been Any Changes To Your Family Or Social Situation? No Information not available 07/22/2023 What Is The Fluoride Status Of Your Home? Fluoridated Information not available 07/22/2023 Are There Any Guns Present In Your Home? No Information not available 07/22/2023 Do You Use Insect Repellent Routinely? Yes Information not available 07/22/2023 Where Do You Live? [facility] Information not available 07/22/2023 Do You Have A Medical Power Of Lead Injection Mold Technician? Yes Information not available 07/22/2023 What Was The Date Of Your Most Recent Tobacco Screening? 09/02/2023 [email or web address] Information not available 09/02/2023 Do You Have Any Pets? No Information not available 07/22/2023 What Is Your Relationship Status? [id number] Information not available 12/02/2022 Do You Use Your Seat Belt Or Car Seat Routinely? Yes Information not available 07/22/2023 Do You Have Smoke And Carbon Monoxide Detectors In Your Home? Yes Information not available 07/22/2023 Are You Passively Exposed To Smoke? No Information not available 07/22/2023 Do You Use Sunscreen Routinely? Yes Information not available 07/22/2023 Has Tobacco Cessation Counseling Been Provided? No Information not available 07/22/2023 Have You Recently Traveled Abroad? No Information not available 07/22/2023 Do You Have Any Dietary Restrictions? No Information not available 07/22/2023 Sex: Male Functional Status Question Answer Note LastModified by Organizat ion Details LastModified Time Do you use any illicit or recreational drugs? No Information not available 07/22/2023 Do you or have you ever used any other forms of tobacco or nicotine? No Information not available 07/22/2023 What is your level of alcohol consumption? 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 Occasional [id number] Information not available 12/02/2022 Mental Status Question Answer Note LastModified by Organization D etails LastModified Time Do you feel stressed (tense, restless, nervous, or anxious, or unable to sleep at night)? [id number] Information not available 07/22/2023 Family History Relationship Description Onset Age of this Age Resolved Age Notes LastModified by Organization Details LastModified Time Mother General health good cyahl Not available 07/04 15:36:15 Paternal Grandmother Myocardial infarction [id number] Not available 12/02/2022 15:40:12 Father Autoimmune encephalitis cyahl Not available 15:36:15 Medical History Condition Response BLINDNESS N NERVE DISEASE N RHEUMATIC FEVER N BLADDER PROBLEMS N KIDNEY STONES N MRSA N OTHER # 1 N POLIO N LUNG DISEASE/DISORDER N HISTORY OF DRUG ABUSE N RADIATION / CHEMOTHERAPY N COPD N Other # 2 N BLOOD DISEASES N EAR OR HEARING PROBLEMS N MUMPS N SHINGLES N DEPRESSION (INCLUDING POST ) N BOWEL PROBLEMS N STROKE/TIA N ULCERS N BENIGN PROSTATIC HYPERPLASIA N MEASLES N HYPOTENSION N MYOCARDIAL INFARCTION N OBESITY N GERD/NAUSEA N ANEURYSM N URINARY/BLADDER/KIDNEY PROBLEMS N CORONARY ARTERY DISEASE (CAD) N ADDICTION CONCERNS N ENDOMETRIOSIS N Impotence N USE OF BLOOD THINNERS N SKIN PROBLEMS N GASTROINTESTINAL DISORDER N PERIPHERAL VASCULAR DISEASE N MUSCLE,JOINT OR BONE PROBLEMS N GASTROINTESTINAL BLEEDING N BLOOD CLOTS N ASTHMA N CATARACTS N ERECTILE DYSFUNCTION N VARICOSITIES N GI PROBLEMS N Low Testosterone N INFERTILITY N AIDS/HIV N CHEMOTHERAPY / RADIATION N LIVER DISEASE N MALE HYPOGONADISM N HYPERTENSION Y Deficiency N TOURETTE'S N ANXIETY DISORDER N BLOOD TRANSFUSION N ANEMIA/BLOOD DISORDER N CHRONIC EAR INFECTIONS N BRONCHITIS N TUBERCULOSIS N GLAUCOMA N FOOT PROBLEM N DIVERTICULITIS N CHICKENPOX Y SLEEP APNEA N INFECTIOUS DISEASE N HEART ARRHYTHMIA N PROSTATE N INSOMNIA N HIGH CHOLESTEROL / HYPERLIPIDEMIA N HYPERTHYROIDISM N EYE PROBLEMS N EDEMA N CHRONIC PAIN SYNDROME N HYPOTHYROIDISM N CAROTID BLOCKAGE N CONSTIPATION N BACK / NECK PROBLEMS N HAVE YOU BEEN HOSPITALIZED OR SEEN IN [facility] IN THE PAST YEAR ? N ATHEROSCLEROSIS N BREAST PROBLEMS N DIALYSIS N ECZEMA N OSTEOPOROSIS N ARTHRITIS N APPENDICITIS N DIABETES, TYPE N BAD TEETH N ENT N HEARTBURN / REFLUX N AUTISM SPECTRUM DISORDER (ASD) N HEPATITIS / LIVER DISEASE N GOUT Y SLEEP DISORDER N ALZHEIMER'S DISEASE N Brain Problems N HERPES N DEMENTIA N HEADACHES/MIGRAINES N SEIZURES/EPILEPSY N VASCULAR DISEASE N PACEMAKER N Blood Disorder N DIZZINESS N HEART DISEASE/HEART PROBLEMS N KIDNEY DISEASE N MULTIPLE SCLEROSIS N CARDIAC ARRHYTHMIA N CANCER: SPECIFY N ATRIAL FIBRILLATION N Gall Stones N PULMONARY EMBOLISM N AUTOIMMUNE DISEASE N Immunizations Vaccine Type Date Status Note Provider Nam e and Address Organization Details Recorded Time COVID-19, mRNA, LNP-S, PF, 30 mcg/0.3 mL dose 3 completed THA Fu, [place] [facility] [place] [employer] 06/24/2023 08:59:27 Tdap 4 completed Not Available [facility] 12/02/2022 15:42:13 COVID-19, mRNA, LNP-S, PF, 30 mcg/0.3 mL dose 2 completed Not Available [facility] 12/02/2022 15:42:13 COVID-19, mRNA, LNP-S, PF, 30 mcg/0.3 mL dose 1 completed Not Available [facility] 12/02/2022 15:42:13 COVID-19, mRNA, LNP-S, PF, 30 mcg/0.3 mL dose 1 completed Not Available [facility] 12/02/2022 15:42:13 COVID-19, mRNA, LNP-S, PF, 30 mcg/0.3 mL dose 0 completed Not Available [facility] 12/02/2022 15:42:13 Influenza, split virus, quadrivalent, preservative 8 completed Not Available [facility] 12/02/2022 15:42:13 Past Encounters Encounter ID Performer Location Encounter Start Date Encounter Closed Date Diagnosis/Indication Diagnosis SNOMED-CT Code Diagnosis ICD10 Code Diagnosis IMO Codes Diagnosis Note [id number] [facility] [place] [address] [place] [address] y , [place] [address] 07/17/2021 00:00:00 07/17/2021 23:17:36 [id number] [facility] [place] [address] [place] [address] y , [place] [address] 01/20/2022 00:00:00 02/07/2022 23:49:35 [id number] [facility] [place] [address] [place] [address] y , [place] [address] 07/21/2022 00:00:00 07/22/2022 08:49:40 [id number] [facility] [place] [address] [place] [address] y , [place] [address] 07/22/2023 15:34:58 07/22/2023 16:48:46 Chest pain 46881585 R07.9 Gastroesop hageal reflux disease 987412948 K21.9 Gout 19193996 M10.9 [id number] [facility] [place] [address] [place] [address] y , [place] [address] 09/02/2023 10:43:23 09/02/2023 11:51:04 Gastroesophageal reflux disease 658833091 K21.9 Health Concerns Section Related Observation LastModified by Organization Detai ls LastModified Time None Recorded Concern Status LastModified by Organization Details LastModified Time None Recorded Advance Directives Directive Y: living will Payers Insurance Date Sequence Insurance Name Policy Number Policy Rock Covered Member ID Rock Member ID Guarantor Name 09/04/2023 1 [employer] [id number] Kevin Berman [id number] Kevin Berman Notes Date Note Type Note Provider Name and Address Organization Details Recorded Time 3 text/html Heartburn and burning in his chest at times Pepcid receptoroccasionally feel a little bit of left upper chest pain no change in character intensity or frequency over the past few yearsGout no flare-ups Kobe Carlos MD [address], [place], [address], [facility] 07/22/2023 21:13:41 3 text/html Stress test negative PPI seems to be helping Kobe Carlos MD [address], [place], [address], [facility] 09/03/2023 20:59:42
--- OUTSIDE RECORDS SUMMARY | 2025-08-16 07:48 | XMS_ITS | Clinical Summary ---
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 Labor Relations Worker Name Role Phone Unavailable Primary Care Provider Unavailabl e Social History Tobacco Use Types Packs/Day Years Used Date Smoking Tobacco: Never Assessed Sex and Gender Information Value Date Recorded Sex Assigned at Not on file Legal Sex Male 7:51 PM CDT Gender Identity Not on file Sexual Orientation Not on file Plan of Treatment Health Maintenance Due Date Last Done Comments Annual Physical 1986 Hepatitis C 2001 DTaP, Tdap and Td Vaccines ( 1 - Tdap) 2002 Hepatitis B Vaccines (1 of 3 - 19+ 3-dose series) 2002 HPV Vaccines (1 - 3-dose SCD M series) 2010 COVID-19 Vaccine ( - 2024-2 6 season) 2025 Influenza Adult (#1) 2025 Hepatitis A Vaccines Aged Out No long er eligible based on patient's age to complete this topic Meningococcal B Vaccine Aged Out No l onger eligible based on patient's age to complete this topic Meningococcal Vaccine Aged Out No maicol johan eligible based on patient's age to complete this topic Pneumococcal Vaccine: Pediat rics (0 to 5 Years) and At-Risk Patients (6 to 49 Years) Aged Out No longer eligible b ased on patient's age to complete this topic RSV Immunizations Under 20 Months Aged Out No longer eligible based on patient's age to complete this topic
== END 2025-08-16 07:46 | disposition home or self-care (01) ==
LOC: ANHAUDIO 07:46
PROVIDERS: PCP Internal Medicine; Visit Provider Otolaryngology
DX: H93.13 Tinnitus, bilateral (principal)
CPT/HCPCS: 92557; 92567

== ENCOUNTER 2025-09-07 07:41 | Outpatient (CLI) | payer OTHER, SELFPAY ==
[2025-09-07 08:17] LABS: Hematocrit 47.4 % (42.0-52.0); Hemoglobin 15.3 g/dL (14.0-18.0); Immature Granulocyte Percent A 0.4 % (0-0.5); Lymphocytes Absolute Auto 1.78 K/mm3 (0.9-3.2); Mean Corpuscular HGB Conc 32.3 g/dl (32-36); Mean Corpuscular Hemoglobin 26.0 pg (26-34); Mean Corpuscular Volume 80.6 fl (80-100); Nucleated Red Blood Cells Absolute Auto 0.000 K/mm3 (0.0-0.012); Nucleated Red Blood Cells Perc 0.0 % (0.0-0.2); Platelet Count Result 319 k/mm3 (150-375); Red Blood Count 5.88 M/mm3 (4.6-6.20); White Blood Count 6.8 K/mm3 (4.5-10.0)
[2025-09-07 09:11] LABS: Alanine Aminotransferase 19 U/L (6-50); Albumin Level 4.4 g/dL (3.5-5.1); Alkaline Phosphatase 75 U/L (38-126); Anion Gap 5 mmol/L (4-12); Aspartate Amino Transferase 28 U/L (17-59); Bilirubin,Total 0.6 mg/dL (0.2-1.3); Blood Urea Nitrogen 16 mg/dL (9-20); Calcium 9.2 mg/dL (8.4-10.2); Carbon Dioxide 28 mmol/L (22-30); Chloride 103 mmol/L (98-107); Cholesterol 177 mg/dL (0-200); Estimated Glomerular Filt Rate > 60; Glucose 86 mg/dL (65-110); HDL Direct 42 mg/dL; Potassium 4.6 mmol/L (3.4-5.0); Sodium 136 mmol/L (137-145); Total Protein 8.0 g/dL (6.3-8.2); Triglycerides 128 mg/dL (<150); Uric Acid 4.6 mg/dL (3.5-8.5)
[2025-09-07 09:42] LABS: Prostate Specific Antigen 0.8 ng/mL (< OR = 4.0)
== END 2025-09-07 07:42 | disposition home or self-care (01) ==
LOC: ANHLAB 07:43
PROVIDERS: PCP Internal Medicine; Visit Provider Internal Medicine
DX: M10.9 Gout, unspecified (principal); I10 Essential (primary) hypertension; Z12.5 Encounter for screening for malignant neoplasm of prostate
CPT/HCPCS: 36415; 80053; 80061; 84153; 84550; 85025; G0103